=== PATIENT | male | born 1945 | race Native Hawaiian/Other Pacific Islander ===

== ENCOUNTER 2017-02-16 20:56 | Outpatient (CLI) | payer OTHER ==
[2017-02-16] MEDS ORDERED: ALLO300T23 PO (21:32)
[2017-02-16] MEDS ORDERED: NITROSTAT0.4 MG SL (21:32)
[2017-02-16] MEDS ORDERED: ROPINIROLE OR (21:32)
[2017-02-16] MEDS ORDERED: LORTAB 10-325 M1 TAB PO (21:32)
[2017-02-16] MEDS ORDERED: COZAAR25 MG PO (21:32)
[2017-02-16] MEDS ORDERED: ASPIRIN81 M1 OR (21:32)
[2017-02-16] MEDS ORDERED: MULT VITAMIN OR (21:32)
[2017-02-16] MEDS ORDERED: AMLO2.5T PO (21:32)
[2017-02-16] MEDS ORDERED: SERT100T PO (21:32)
[2017-02-16] MEDS ORDERED: GLIP10TA55 PO (21:32)
[2017-02-16] MEDS ORDERED: GENTIAN VIOLET EX (21:32)
[2017-02-16] MEDS ORDERED: TOPROL XL200 M1 PO (21:32)
[2017-02-16] MEDS ORDERED: METFORMIN ER1000 MG PO (21:32)
[2017-02-16] MEDS ORDERED: OMEPRAZOLE20 M1 OR (21:32)
[2017-02-16] MEDS ORDERED: LIPITOR80 MG PO (21:32)
== END 2017-02-16 21:06 | disposition short-term general hospital (02) ==
LOC: AMB 20:56
DX: R06.09 Other forms of dyspnea (principal); M25.561 Pain in right knee
CPT/HCPCS: A0425; A0427

== ENCOUNTER 2017-02-22 14:26 | Inpatient (IN) | payer OTHER ==
[~2017-02-22] VITALS: Ht 182.9 cm; Wt 115.3 kg
[~2017-02-22 14:26] MED LIST: ALLO300T23 PO; AMLO2.5T PO; ASPIRIN81 M1 OR; COZAAR25 MG PO; GENTIAN VIOLET EX; GLIP10TA55 PO; LIPITOR80 MG PO; LORTAB 10-325 M1 TAB PO; METFORMIN ER1000 MG PO; MULT VITAMIN OR; NITROSTAT0.4 MG SL; OMEPRAZOLE20 M1 OR; ROPINIROLE OR; SERT100T PO; TOPROL XL200 M1 PO
[2017-02-23 08:00] VITALS: BP 122/55; TEMP 98.1
[2017-02-24 07:45] LABS: PLATELET COUNT 385 K/uL (142-355)
[2017-02-24 08:00] VITALS: BP 120/52; TEMP 97.3
[2017-02-24 08:03] LABS: POTASSIUM 3.7 mmol/L (3.6-5.2); SODIUM 126 mmol/L (136-145)
[2017-02-24 20:00] VITALS: BP 158/74; TEMP 99.1
[2017-02-25 08:00] VITALS: BP 138/62; TEMP 98.6
[2017-02-25 19:00] VITALS: BP 155/60; TEMP 98.6
[2017-02-26 05:23] LABS: POTASSIUM 3.7 mmol/L (3.6-5.2); SODIUM 128 mmol/L (136-145)
[2017-02-26 06:14] LABS: PLATELET COUNT 427 K/uL (142-355)
[2017-02-26 06:25] LABS: PARTIAL THROMBOPLASTIN TIME 25.9 SECONDS (24.5-33.6)
[2017-02-26 08:00] VITALS: BP 161/67; TEMP 97.9
[2017-02-26 19:34] VITALS: BP 152/58; TEMP 99.1
[2017-02-27 08:00] VITALS: BP 142/85; TEMP 98
[2017-02-27 20:00] VITALS: BP 156/64; TEMP 98.2
[2017-02-28 08:00] VITALS: BP 146/65; TEMP 98.6
[2017-02-28 20:00] VITALS: BP 149/64; TEMP 99
[2017-03-01 08:00] VITALS: BP 154/51; TEMP 97.8
[2017-03-01 20:00] VITALS: BP 142/60; TEMP 98.8
[2017-03-02 08:00] VITALS: BP 161/66; TEMP 98.1
== END 2017-03-02 15:45 | disposition home or self-care (01) | DRG 556 ==
LOC: MED/SURG 14:26
DX: M62.81 Muscle weakness (generalized) (principal); R26.81 Unsteadiness on feet; I25.10 Atherosclerotic heart disease of native coronary artery without angina pectoris; J44.9 Chronic obstructive pulmonary disease, unspecified; E11.9 Type 2 diabetes mellitus without complications; Z86.73 Personal history of transient ischemic attack (TIA), and cerebral infarction without residual deficits; Z96.651 Presence of right artificial knee joint; T84.53XS Infection and inflammatory reaction due to internal right knee prosthesis, sequela
CPT/HCPCS: 36591; 80048; 80053; 82550; 82553; 82948; 84484; 85027; 85610; 85651; 85730; 86140; 93005; 96372; J0690; J1940

== ENCOUNTER 2017-03-03 12:50 | Outpatient (CLI) | payer OTHER | END 2017-03-03 16:00 | disposition home or self-care (01) | LOC: INF 12:50 | DX: M00.061 Staphylococcal arthritis, right knee (principal); B95.62 Methicillin resistant Staphylococcus aureus infection as the cause of diseases classified elsewhere | CPT/HCPCS: 96365; J3370 ==

== ENCOUNTER 2017-03-04 13:52 | Outpatient (CLI) | payer OTHER ==
[~2017-03-04] VITALS: Ht 182.9 cm; Wt 117.9 kg
== END 2017-03-04 17:00 | disposition home or self-care (01) ==
LOC: INF 13:52
DX: M00.061 Staphylococcal arthritis, right knee (principal); B95.62 Methicillin resistant Staphylococcus aureus infection as the cause of diseases classified elsewhere
CPT/HCPCS: 96365; J0690

== ENCOUNTER 2017-03-05 08:21 | Outpatient (CLI) | payer OTHER ==
[~2017-03-05] VITALS: Ht 167.6 cm; Wt 117.9 kg
[2017-03-05 09:32] LABS: PLATELET COUNT 433 K/uL (142-355)
[2017-03-05 09:38] LABS: POTASSIUM 3.9 mmol/L (3.6-5.2); SODIUM 128 mmol/L (136-145)
[2017-03-05 09:54] LABS: PARTIAL THROMBOPLASTIN TIME 26.3 SECONDS (24.5-33.6)
== END 2017-03-05 11:30 | disposition home or self-care (01) ==
LOC: INF 08:21
PROVIDERS: Student in an Organized Health Care Education/Training Program
DX: M00.061 Staphylococcal arthritis, right knee (principal); B95.62 Methicillin resistant Staphylococcus aureus infection as the cause of diseases classified elsewhere; R79.1 Abnormal coagulation profile
CPT/HCPCS: 80048; 85027; 85610; 85651; 85730; 86140; 96365; 96366; 96375; J0690

== ENCOUNTER 2017-03-06 09:00 | Outpatient (CLI) | payer OTHER ==
[~2017-03-06] VITALS: Ht 167.6 cm; Wt 117.9 kg
[2017-03-06 09:05] VITALS: BP 129/69; TEMP 99.3
[2017-03-06 09:15] VITALS: BP 128/71; TEMP 99.1
== END 2017-03-06 17:30 | disposition home or self-care (01) ==
LOC: INF 09:00
DX: T84.53XA Infection and inflammatory reaction due to internal right knee prosthesis, initial encounter (principal)
CPT/HCPCS: 96365; 96366; 96375; 96376; J0690

== ENCOUNTER 2017-03-16 15:23 | Inpatient (IN) | payer OTHER ==
[~2017-03-16] VITALS: Ht 180.3 cm; Wt 101.8 kg
[2017-03-16 16:35] VITALS: BP 154/65; TEMP 98.8; Ht 180.3 cm; Wt 101.8 kg
[2017-03-16 20:02] VITALS: BP 160/64; TEMP 99
[2017-03-17 08:33] VITALS: BP 164/68; TEMP 98.3
[2017-03-17 20:19] VITALS: BP 133/55; TEMP 98.4
[2017-03-18 07:44] VITALS: BP 143/56; TEMP 98.1
[2017-03-18 08:39] LABS: PARTIAL THROMBOPLASTIN TIME 27.2 SECONDS (24.5-33.6)
[2017-03-18 20:00] VITALS: BP 141/68
[2017-03-19 06:01] LABS: PLATELET COUNT 444 K/uL (142-355)
[2017-03-19 06:18] LABS: POTASSIUM 4.5 mmol/L (3.6-5.2); SODIUM 125 mmol/L (136-145)
[2017-03-20 20:00] VITALS: BP 139/66; TEMP 99.2
[2017-03-21 08:00] VITALS: BP 136/66; TEMP 98.5
== END 2017-03-21 18:30 | disposition short-term general hospital (02) | DRG 556 ==
LOC: MED/SURG 15:23
PROVIDERS: ADMIT Student in an Organized Health Care Education/Training Program
DX: M62.81 Muscle weakness (generalized) (principal); T84.53XA Infection and inflammatory reaction due to internal right knee prosthesis, initial encounter; I10 Essential (primary) hypertension; J44.9 Chronic obstructive pulmonary disease, unspecified; E11.9 Type 2 diabetes mellitus without complications; I25.10 Atherosclerotic heart disease of native coronary artery without angina pectoris; Z86.73 Personal history of transient ischemic attack (TIA), and cerebral infarction without residual deficits; Z47.1 Aftercare following joint replacement surgery; Z96.651 Presence of right artificial knee joint
CPT/HCPCS: 36415; 80048; 82948; 85027; 85610; 85651; 85730; 86140; 96372; J0690; J1642; J1650; J1815; J1885

== ENCOUNTER 2017-03-21 18:30 | Inpatient (IN) | payer OTHER ==
[~2017-03-21] VITALS: Ht 180.3 cm; Wt 104.3 kg
[2017-03-21 20:54] VITALS: BP 123/51; TEMP 98.6; Ht 180.3 cm; Wt 104.3 kg
[2017-03-22] VITALS: BP 125/59; TEMP 98.1
[2017-03-22 04:00] VITALS: BP 133/66; TEMP 98.4
[2017-03-22 05:43] LABS: PLATELET COUNT 452 K/uL (142-355)
[2017-03-22 05:54] LABS: POTASSIUM 4.2 mmol/L (3.6-5.2); SODIUM 125 mmol/L (136-145)
[2017-03-22 08:00] VITALS: BP 129/59; TEMP 97.7
--- NOTE | 2017-03-22 09:00 | NUR ---
DRESSING TO RIGHT KNEE REMOVED. ESSENTIALLY NO DRAINAGE NOTED ON THE OLD DRESSING. INCISION CLEANED WITH HIBICLENS AND NS. INCISION COVERED WITH TELFA, 4X4'S AND WRAPPED WITH JAMILA. PATIENT TOLERATED WELL.
--- NOTE | 2017-03-22 09:07 | NUR ---
PATIENT WAS CHANGED TO ACUTE INPATIENT 03/21/17 R/T WOUND TO RIGHT KNEE BEGAN TO HAVE BLOODY PUSSY DRAINAGE ALL ATHE WAY DOWN THE INCISION AND WAS ALSO TRAPPED UNDER THE AQUACELL DSG AND UNDER THE SKIN UNDER THE SUTCHERS AND JAGDEEP AND OOZING OUT. DR LOPEZ WAS NOTIFIED WELL SIMI BEST HUMAN RESOURCES RECORDS CLERK, BOTH CAME OVER TO SEE ABOUT PATIENT AND DR LOPEZ REMOVED THE AQUACELL AND GOT A CULTURE CLEANED AND REDRESSED AREA. DR LOPEZ ALSO CONSULTED WITH DR MENDEZ WHO WAS LYE MACHINE OPERATOR FOR DR GOETZ, THE PATIENT'S INFECTIOUS DISEASE PHYSICIAN. DR LOPEZ CHANGED ANTIBIOTIC AND WILL CONSULT WITH DR LOPEZ THE PATIENT'S ORTHOPEDIC SURGION THIS AM. PATIENT WILL POSSIBLY BE TRANSFERRED BACK TO [place].
--- NOTE | 2017-03-22 09:24 | NUR ---
THE DISCHARGE PLAN WAS FOR THE PATIENT TO BE DISCHARGED HOME WITH AND FAMILY TO THEIR CARE WITH [facility] TO RECEIVE IV ANTIBIOTIC INFUSIONS AT HOME. HOWEVER THIS HAS BEEN POSTPONED AND PUAT ON HOLD AT THIS TIME. ALL ENTITIES THAT WOULD HAVE BEEN INVOLVED HAVE BEEN NOTIFIED. CEFERINO CAZARES AT [place], SAVANAH AT [facility] AND SOLEDAD RODRÍGUEZ WITH [facility]. WILL UPDATE ALL SOON DECISIONS HAVE BEEN MADE AND THERE IS A PLAN.
[2017-03-22 12:00] VITALS: BP 126/60; TEMP 97.8
--- NOTE | 2017-03-22 12:30 | NUR ---
SIMI BEST NP CALLED WITH NEW ORDERS TO PLACE A WOUND VAC TO PATIENT'S RIGHT KNEE. EXPLAINED THAT AT THE TIME OF THE DRESSING CHANGE THIS AM THE INCISION WAS CLOSED WITH NO OPEN WOUNDS TO INSERT THE SPONGE FOR THE WOUND VAC. INSTRUCTIONS RECEIVED TO REMOVE SOME SUTURES TO OPEN THE WOUND. DRESSING REMOVED AND INCISION EXAMINED BY MYSELF AND ZACH HERNANDEZ RN. THREE SUTURES REMOVED FROM THE BOTTOM OF THE INCISION. THE INCISION REMAINS CLOSED WITH NO DRAINAGE AT THIS TIME. SIMI NOTIFIED AND HE SAID THAT DR. LOPEZ WOULD COME AND EVALUATE THE INCISION. INCISION CLEANED AND NEW DRESSING APPLIED. PATIENT TOLERATED WELL.
[2017-03-22 16:00] VITALS: BP 135/63; TEMP 97.6
--- NOTE | 2017-03-22 18:00 | NUR ---
DR. LOPEZ IN TO SEE PATIENT. HE OPENED UP THE BOTTOM OF THE INCISION A SMALL AMOUNT AND DRAINED SOME SEROSANGUINOUS DRAINAGE FROM THE WOUND. WOUND CLEANED WITH HIBICLENS AND IODINE. HE THEN APPLIED THE WOUND VAC AND IT SHOWED GOOD SUCTION/SEAL. DEANAAN WRAPPED SNUGGLY ABOVE THE KNEE TO APPLY PRESSURE DOWN SO THE FLUID WILL DRAIN INTO THE LOWER PART OF THE WOUND. PATIENT TOLERATED PROCEDURE WELL.
[2017-03-22 20:00] VITALS: BP 124/60; TEMP 98.1
[2017-03-23] VITALS: BP 130/72; TEMP 98.3
[2017-03-23 04:00] VITALS: BP 131/100; TEMP 98.3
[2017-03-23 06:11] LABS: PLATELET COUNT 457 K/uL (142-355)
[2017-03-23 06:29] LABS: POTASSIUM 3.9 mmol/L (3.6-5.2); SODIUM 126 mmol/L (136-145)
--- NOTE | 2017-03-23 07:38 | NUR ---
03/23/17 0600 50ML OUT OF WOUNDVAC SEROSANGIOUS DRAINAGE.CC
[2017-03-23 08:00] VITALS: BP 135/61; TEMP 97.9
[2017-03-23 12:00] VITALS: BP 146/60; TEMP 97.9
[2017-03-23 15:59] VITALS: BP 139/63; TEMP 98.7
[2017-03-23 20:00] VITALS: BP 144/56; TEMP 98.8
[2017-03-24] VITALS: BP 140/58; TEMP 98.2
--- NOTE | 2017-03-24 03:47 | NUR ---
03/24/17 0320 PT REQUESTING COBAN ON RIGHT LEG TO BE REMOVED HE SAID IT IS HURTING HIM.REMOVED COBAN AT THIS TIME.CC
[2017-03-24 04:00] VITALS: BP 149/62; TEMP 98.4
[2017-03-24 05:18] LABS: PLATELET COUNT 499 K/uL (142-355)
[2017-03-24 05:25] LABS: POTASSIUM 3.7 mmol/L (3.6-5.2); SODIUM 126 mmol/L (136-145)
[2017-03-24 08:00] VITALS: BP 141/44; TEMP 98
[2017-03-24 12:00] VITALS: BP 128/60; TEMP 97.4
[2017-03-24 16:30] VITALS: BP 110/75; TEMP 97.4
[2017-03-24 20:35] VITALS: BP 140/67; TEMP 97.3
[2017-03-25] VITALS: BP 136/65; TEMP 97.7
[2017-03-25 04:14] VITALS: BP 130/65; TEMP 97.8
[2017-03-25 05:24] LABS: PLATELET COUNT 480 K/uL (142-355)
[2017-03-25 05:33] LABS: POTASSIUM 3.8 mmol/L (3.6-5.2)
[2017-03-25 08:00] VITALS: BP 145/54; TEMP 98.3
[2017-03-25 12:00] VITALS: BP 149/63; TEMP 98
[2017-03-25 16:00] VITALS: BP 131/66; TEMP 98.1
[2017-03-25 20:00] VITALS: BP 132/54; TEMP 98.3
[2017-03-26] VITALS: BP 131/58; TEMP 98.6
[2017-03-26 04:00] VITALS: BP 150/67; TEMP 98.2
[2017-03-26 04:57] LABS: PLATELET COUNT 484 K/uL (142-355)
[2017-03-26 05:07] LABS: POTASSIUM 3.7 mmol/L (3.6-5.2)
[2017-03-26 07:53] VITALS: BP 137/65; TEMP 98.6
[2017-03-26 11:57] VITALS: BP 110/42; TEMP 98
--- NOTE | 2017-03-26 13:00 | NUR ---
UPON ENTERING PT ROOM, AT BS COMPLETING DRESSING CHANGE TO R KNEE. INSTRUCTED PT DRESSING CHANGEES ARE TO BE DONE BY NURSES AND DRESSING ORDER WAS FOR BID AND NURSE COMPLETED DRESSING CHANGE THIS AM. 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
--- NOTE | 2017-03-26 15:28 | NUR ---
PICC LINE DRESSING CHANGED AT THIS TIME PER PROTOCOL BY JOY PHELAN RN.
[2017-03-26 16:00] VITALS: BP 130/58; TEMP 98.3
--- NOTE | 2017-03-26 16:01 | NUR ---
PICC LINE SLIGHT REDDNESS, SMALL SCAB FORMATION ON INSERTION SITE. NO DRAINAGE NOTED. APPROX 1CM EXPOSED CATH. NO SWELLING AROUND SITE. PT TOLERATED WELL.
[2017-03-26 20:17] VITALS: BP 137/54; TEMP 99.2
[2017-03-27] VITALS (32 sets, daily range): BP systolic 100–154; BP diastolic 10–119; TEMP 97.7–98.7
[2017-03-27 05:31] LABS: POTASSIUM 3.8 mmol/L (3.6-5.2)
--- NOTE | 2017-03-27 07:15 | NUR ---
RECIEVED ORDER PT MOVED FROM MED SURG TO PCU 1 NEW ONSET A FLUTTER. PT HAS HISTORY A FIB/A FLUTTER. PT MOVED TO PCU 1 PLACED ON MONITOR HR 120'S A FLUTTER. PT ORIENTED TO ROOM RECIEVED REPORT FROM ELIZABETH PICHARDO RN. RECIEVED ORDERS FROM DR LOPEZ. PT RECIEVED CARDIZEM 20 MG IV PUSH THEN STARTED ON DRIP AT 5 MG HR HR DOWN TO 100 A FLUTTER. NO COMPLAINTS OF PAIN PT PLACED ON 02 AT 2 L.
--- NOTE | 2017-03-27 07:50 | NUR ---
DR LOPEZ VISITED CHECKED PT RECIEVED ORDERS. WILL CONSULT DR ROLON.
--- NOTE | 2017-03-27 09:30 | NUR ---
PT RECIEVED AM MEDS DARLIN WELL CARDIZEM DRIP AT 5 MG HR HR 82 A FLUTTWER DENIES PAIN UP SITTING ON SIDE OF BED EATING BREAKFAST DARLIN WELL. NO COMPLAINTS MONITOR SHOWING A FLUTTER HR 88. PT'S SON VISITED.
--- NOTE | 2017-03-27 10:40 | NUR ---
DR ROLON VISITED CHECKED PT RECIEVED NEW ORDERS. PT RESTING IN BED HOB UP WATCHING TV NO COMPLAINTS.
--- NOTE | 2017-03-27 11:06 | NUR ---
RESP DEPT HERE ECHO DONE.
--- NOTE | 2017-03-27 12:24 | NUR ---
PT RESTING IN BED BLOOD SUGAR 189 RECIEVED 2 UNITS REGULAR INSULIN SQ. PT RESTING IN BED FAMILY MEMBERS VISITED. PT A LITTLE ANXIOUS ABOUT HAVING TO STAY IN HOSPITAL. RECIEVED NEW ORDER FOR ANXIETY. PT RECIEVED AMIODORONE IV BOLUS. DARLIN WELL HR 78 FLUTTER APPEARS TO TRY TO CONVERT WILL MONITOR CLOSELY. BLOOD SENT TO LAB CPK AND TROP. RT HERE FOR EKG. NO COMPLAINTS OF PAIN NO SHORTNESS OF BREATH SAT 100% AT 2 L NC.
--- NOTE | 2017-03-27 12:59 | NUR ---
FINISHED LUNCH RECIEVED ATIVAN 0.5 PO FOR ANXIETY. MONITOR SHOWING A FLUTTER HR 80
--- NOTE | 2017-03-27 15:41 | NUR ---
RESTING QUIETLY PT RESTING ON LEFT SIDE CARDIZEM DRIP CONTINUES AT 5 MG HR HR 67, B/P 118/47. NO COMPLAINTS
--- NOTE | 2017-03-27 16:38 | NUR ---
BLOOD SUGAR 187 RECIEVED 2 UNITS REGULAR INSULIN SQ VOIDED 500 ML DARRYN CLEAR URINE. NO COMPLAINTS.
--- NOTE | 2017-03-27 17:47 | NUR ---
PT'S HERE VISITED. DR LOPEZ STOPPED BY CHECKED WOUND. APPEARS TO BE IMPROVING EKG DONE CARDIAC ENZYMES DRAWN. PT RESTING IN BED NO COMPLAINTS OTHER THAN WANTING TO GO HOME. HR 67 A FLUTTER CARDIZEM CONTINUES AT 5 MG HR. WILL CONTINUE TO MONITOR.
--- NOTE | 2017-03-27 19:00 | NUR ---
ATE ALL SUPPER TRAY ASSIST UP TO BEDSIDE COMMODE HAD BM AND VOIDED. PLACED LEG BRACE ON PT BEFORE GETTING UP. ASSISTED NEEDED. NO COMPLAINTS.
--- NOTE | 2017-03-27 19:30 | NUR ---
RECEIVED PATIENT LAYING SUPINE IN BED SEMIFOWLERS POSITION. PATIENT IS A0X4. RESPIRATIONS REGULAR AND NONLABORED. ASSESSMENT COMPLETED AT THIS TIME. PATIENT NOTED WITH A PICC LINE TO THE LEFT UPPER ARM NO SIGNS OF INFILTRATION NOTED. PATIENT DENIES ANY PAIN AT SITE. INFUSING CARDIZEM AT 5MCG/MIN WITH NS AT 30 MLHR. VEHICLE SALES PROFESSIONAL SHOWS PATIENT CONTINUES IN A-FLUTTER WITH HR-66. PATIENT DENIES ANY CHEST PAIN AT PRESENT TIME. DRESSING NOTED TO THE RIGHT KNEE NOTED CLEAN DRY AND INTACT WITH NO VISIBLE SIGNS OF DRAINAGE. BED IS LOCKED IN LOW POSITION WITH SIDERAILS UP X2, CALL [place] WITHIN REACH. WILL CONTINUE TO MONITOR NEEDED.
[2017-03-28] VITALS (32 sets, daily range): BP systolic 104–148; BP diastolic 47–100; TEMP 98.2–98.6
--- NOTE | 2017-03-28 | NUR ---
RT HERE DOING EKG. BLOOD SAMPLES COLLECTED BY MACHINE VENEER REPAIRER FOR [place].
--- NOTE | 2017-03-28 02:00 | NUR ---
PATIENT IS SITTING UP AT THE BEDSIDE USING URINAL. PATIENT VOIDED 500 ML OF CLEAR YELLOW URINE. PATIENT BACK IN BED WITHOUT DIFFICULTY. PATIENT REFUSES NASAL CANNULA STATES HE DOES NOT NEED AT THIS TIME. SPO2 NOTED AT 95% ON ROOM AIR. NO ACUTE DISTRESS NOTED OR ACUTE PAIN VOICED.
[2017-03-28 06:20] LABS: PLATELET COUNT 436 K/uL (142-355)
--- NOTE | 2017-03-28 07:30 | NUR ---
PT RESTING IN BED HR 96 A FLUTTER B/P 131/69, CARDIZEM DRIP UP TO 10 MG HR.
--- NOTE | 2017-03-28 08:10 | NUR ---
MARSHAL DR ROLON'S NURSE CALL RECIEVED REPORT. FAXED AM LABS AND EKG.
--- NOTE | 2017-03-28 08:21 | NUR ---
SIMI BEST CALLED SPOKE WITH Regine LAWRENCE RN.
--- NOTE | 2017-03-28 08:22 | NUR ---
DR LOPEZ CALLED RECIEVED REPORT. REPORT THAT DR ROLON MAY WANT TO MOVE PT TO [place].
--- NOTE | 2017-03-28 09:25 | NUR ---
DR LOPEZ CALLED BACK DR ROLON TO RECIEVE PT TO [facility] AFTER LUNCH TODAY RECIEVED NEW ORDERS TO TRANSFUSE TWO UNITS BLOOD BEFORE TRANSPORT. STARTED 2ND IV LEFT WRIST 22 GA MOVED [facility] DRIP WILL GIVE BLOOD VIA PICC. DR CAMARA SPOKE WITH PT OK ABOUT TRANSFER.
--- NOTE | 2017-03-28 11:38 | NUR ---
FIRST UNIT BLOOD STARTED PT NPO, ATE BREAKFAST EARLIER. BLOOD SUGAR 258 RECIEVED 6 UNITS REGULAR INSULIN SQ RIGHT ARM. AND FAMILY MEMBERS VISITED.
--- NOTE | 2017-03-28 12:08 | NUR ---
BLOOD INCREASED TO 150 ML HR DARLIN WELL. AT BEDSIDE ASSIST WITH PT SHAVE. NO COMPLAINTS VOICED STABLE VITAL SIGNS HR 65 CARDIZEM AT 10 MG HR. PT INFORMED NPO STATUS.
--- NOTE | 2017-03-28 12:48 | NUR ---
RESTING IN BED NO COMPLAINTS BLOOD INFUSING WITHOUT DIFFICULTY. AT BEDSIDE.
--- NOTE | 2017-03-28 13:20 | NUR ---
FIRST UNIT BLOOD INFUSED DARLIN WELL. RECIEVED LASIX 20 MG IVP ORDERED. PT RESTING QUIETLY NO S/S REACTION.
--- NOTE | 2017-03-28 13:48 | NUR ---
2 ND UNIT INFUSING DARLIN WELL.
--- NOTE | 2017-03-28 15:20 | NUR ---
RECIEVED CALL FROM [facility] GAVE PT REPORT TO DEMI KENYON RN. PT RESTING QUIETLY BLOOD INFUSING NO PROBLEMS NOTED. VISITED WILL BE LEAVING TO GO TO [facility]. WAITING ON EMS. RECIEVED CALL ON THEIR WAY.
--- NOTE | 2017-03-28 15:45 | NUR ---
FINISHED SECOND UNIT BLOOD DARLIN WELL. RECIEVED LASIX 20 AFTER LINE FLUSHED. EMS CALLED BACK TO BE HERE SOON. CONTINUES ON CARDIZEM DRIP AT 10 MG HR NS AT 30 ML HR.
--- NOTE | 2017-03-28 16:25 | NUR ---
LASIX EFFECTIVE VOIDED 500 ML CLEAR URINE. EMS HERE RECIEVED REPORT.
--- NOTE | 2017-03-28 16:35 | NUR ---
RETURNED HOME MEDS TO [facility].
--- NOTE | 2017-03-28 16:35 | NUR ---
PT DISCHARGED FROM PCU VIA STRETCHER TO GO TO [facility]. NO PROBLEMS NOTED NS AT KVO AND CARDIZEM DRIP AT 10 MG HR. STABLE VITAL SIGNS. PT DISCHARGED. CALLED TO [facility] UPDATE AND TIME PT LEAVING REPORTED TO MRS DEMI KENYON RN.
== END 2017-03-28 16:35 | disposition short-term general hospital (02) | DRG 920 ==
LOC: MED/SURG 18:30 → ICU 03-27 07:00
PROVIDERS: ADMIT Student in an Organized Health Care Education/Training Program
PROC: 30233N1 Transfusion of Nonautologous Red Blood Cells into Peripheral Vein, Percutaneous Approach (ICD-10-PCS; principal; 2017-03-28)
DX: T85.79XA Infection and inflammatory reaction due to other internal prosthetic devices, implants and grafts, initial encounter (principal); D62 Acute posthemorrhagic anemia; M25.461 Effusion, right knee; I48.91 Unspecified atrial fibrillation; N28.9 Disorder of kidney and ureter, unspecified; E11.9 Type 2 diabetes mellitus without complications; D64.89 Other specified anemias
CPT/HCPCS: 36415; 36430; 80048; 80202; 82550; 82948; 82962; 83735; 83880; 84484; 85014; 85018; 85027; 86850; 86900; 86901; 86922; 87070; 87205; 93005; 93306; 94760; 96372; J0282; J0690; J1815; J1885; J1940; J2543; J3370; J3475; J3490; P9016

== ENCOUNTER → 2017-04-05 | Day surgery (SDC) | payer OTHER | LOC: OR 07:00 | PROC: 3C1ZX8Z Irrigation of Indwelling Device using Irrigating Substance, External Approach (ICD-10-PCS; principal; 2017-04-05) | DX: T82.594A Other mechanical complication of infusion catheter, initial encounter (principal); I87.2 Venous insufficiency (chronic) (peripheral); T84.53XD Infection and inflammatory reaction due to internal right knee prosthesis, subsequent encounter | CPT/HCPCS: J1642 ==

== ENCOUNTER 2017-05-07 11:18 | Outpatient (CLI) | payer OTHER ==
[2017-05-07 12:15] LABS: POTASSIUM 4.4 mmol/L (3.6-5.2); SODIUM 130 mmol/L (136-145)
[2017-05-07 12:16] LABS: PLATELET COUNT 299 K/uL (142-355)
== END 2017-05-07 18:02 | disposition home or self-care (01) ==
LOC: LAB 11:18
PROVIDERS: Internal Medicine
DX: T85.79XD Infection and inflammatory reaction due to other internal prosthetic devices, implants and grafts, subsequent encounter (principal)
CPT/HCPCS: 80048; 85027; 85651; 86140

== ENCOUNTER 2017-05-14 16:02 | Outpatient (CLI) | payer OTHER ==
[2017-05-14 16:16] LABS: POTASSIUM 4.6 mmol/L (3.6-5.2); SODIUM 133 mmol/L (136-145)
[2017-05-14 16:20] LABS: PLATELET COUNT 338 K/uL (142-355)
== END 2017-05-14 19:31 | disposition home or self-care (01) ==
LOC: LAB 16:02
PROVIDERS: Internal Medicine
DX: T85.79XD Infection and inflammatory reaction due to other internal prosthetic devices, implants and grafts, subsequent encounter (principal)
CPT/HCPCS: 80048; 85027; 85651; 86140

== ENCOUNTER 2017-05-17 11:03 | Outpatient (CLI) | payer OTHER ==
[2017-05-17 12:09] LABS: PLATELET COUNT 320 K/uL (142-355); POTASSIUM 4.1 mmol/L (3.6-5.2); SODIUM 132 mmol/L (136-145)
== END 2017-05-17 22:14 | disposition home or self-care (01) ==
LOC: INF 11:03
PROC: 30233N1 Transfusion of Nonautologous Red Blood Cells into Peripheral Vein, Percutaneous Approach (ICD-10-PCS; principal; 2017-05-17)
DX: D64.89 Other specified anemias (principal)
CPT/HCPCS: 36430; 36591; 80053; 85027; 86850; 86900; 86901; 86922; 96374; 96376; J1940; P9016

== ENCOUNTER 2017-05-21 16:21 | Outpatient (CLI) | payer OTHER ==
[2017-05-21 16:58] LABS: PLATELET COUNT 291 K/uL (142-355)
[2017-05-21 17:08] LABS: POTASSIUM 4.8 mmol/L (3.6-5.2); SODIUM 133 mmol/L (136-145)
== END 2017-05-21 21:25 | disposition home or self-care (01) ==
LOC: LAB 16:21
PROVIDERS: Internal Medicine
DX: T85.79XD Infection and inflammatory reaction due to other internal prosthetic devices, implants and grafts, subsequent encounter (principal); M62.81 Muscle weakness (generalized); E11.9 Type 2 diabetes mellitus without complications; I10 Essential (primary) hypertension
CPT/HCPCS: 80048; 85027; 85651; 86140

== ENCOUNTER 2017-05-29 12:58 | Outpatient (CLI) | payer OTHER ==
[2017-05-29 13:46] LABS: PLATELET COUNT 250 K/uL (142-355)
[2017-05-29 13:56] LABS: POTASSIUM 4.5 mmol/L (3.6-5.2); SODIUM 130 mmol/L (136-145)
== END 2017-05-29 19:40 | disposition home or self-care (01) ==
LOC: LAB 12:58
PROVIDERS: Internal Medicine
DX: E11.9 Type 2 diabetes mellitus without complications (principal); I10 Essential (primary) hypertension; I48.91 Unspecified atrial fibrillation; E66.8 Other obesity
CPT/HCPCS: 80048; 85027; 85651; 86140

== ENCOUNTER 2017-06-04 14:38 | Outpatient (CLI) | payer OTHER ==
[2017-06-04 15:23] LABS: PLATELET COUNT 245 K/uL (142-355)
[2017-06-04 15:26] LABS: POTASSIUM 4.3 mmol/L (3.6-5.2)
== END 2017-06-04 15:40 | disposition home or self-care (01) ==
LOC: LAB 14:38
PROVIDERS: Internal Medicine
DX: E11.9 Type 2 diabetes mellitus without complications (principal); I10 Essential (primary) hypertension; I50.9 Heart failure, unspecified; I48.91 Unspecified atrial fibrillation; J44.9 Chronic obstructive pulmonary disease, unspecified; E66.8 Other obesity
CPT/HCPCS: 80048; 85027; 85651; 86140

== ENCOUNTER 2017-06-25 14:01 | Outpatient (CLI) | payer OTHER ==
[2017-06-25 14:13] LABS: PLATELET COUNT 317 K/uL (142-355)
[2017-06-25 14:23] LABS: POTASSIUM 4.9 mmol/L (3.6-5.2)
== END 2017-06-25 20:08 | disposition home or self-care (01) ==
LOC: LAB 14:01
PROVIDERS: Internal Medicine Infectious Disease
DX: T84.59XA Infection and inflammatory reaction due to other internal joint prosthesis, initial encounter (principal); A49.01 Methicillin susceptible Staphylococcus aureus infection, unspecified site
CPT/HCPCS: 80053; 85027; 85651; 86140

== ENCOUNTER 2018-07-14 15:25 | Outpatient (CLI) | payer OTHER | END 2018-07-14 20:10 | disposition home or self-care (01) | LOC: LABW 15:25 | DX: R19.7 Diarrhea, unspecified (principal) | CPT/HCPCS: 87015; 87045; 87324; 87328; 87329; 87449; 87899 ==

== ENCOUNTER 2018-07-15 08:32 | Day surgery (SDC) | payer OTHER ==
[2018-07-15 10:35] LABS: POTASSIUM 5.1 mmol/L (3.6-5.2)
[2018-07-15 10:39] LABS: PLATELET COUNT 239 K/uL (142-355)
== END 2018-07-15 13:42 | disposition home or self-care (01) ==
LOC: OR 08:32
PROVIDERS: Student in an Organized Health Care Education/Training Program
PROC: 0W9G3ZZ Drainage of Peritoneal Cavity, Percutaneous Approach (ICD-10-PCS; principal; 2018-07-15)
DX: K70.31 Alcoholic cirrhosis of liver with ascites (principal); R06.02 Shortness of breath
CPT/HCPCS: 74022; 80053; 82140; 85027